=== PATIENT | female | born 1995 | race Caucasian/White ===

== ENCOUNTER → 2017-04-11 | Outpatient (CLI) | payer MEDICAID, OTHER, SELFPAY ==
[~2017-04-11] MED LIST: ADDE10TA OR; CETI10TA OR; EFFE75CA75 PO; HALO1TA PO; IMIT100T PO; KEFL500C17 PO; LAMI25TA OR; LAMI25TA PO; LAMO10TA PO; MAXA10TA17 OR; MICR1TAB10 PO; Naprosyn PO; OMEP20CA3 PO; PREN1TAB11 PO; PROP60TA OR; PROZ20CA OR; Propranolol PO; REGL10TA6 PO; RISP0.5T21 PO; RISP2TAB32 PO; VYVA30CA4 PO; ZONI100C2 PO; ZYRT10CA PO; ZYRT10TA2 PO
[2017-04-11 14:13] LABS: BASO % 0.2 % (0.0-1.0); EOS # 0.1 K/mm3 (0.0-0.50); EOS % 0.9 % (0.0-3.0); LARGE UNSTAINED CELL # 0.1 K/mm3 (0.0-0.4); LARGE UNSTAINED CELL % 0.9 % (0.0-4.0); LYMPH # 1.4 K/mm3 (1.5-6.5); LYMPH % 14.9 % (24.0-44.0); MEAN CORPUSCULAR HEMOGLOBIN 31.1 pg (27.0-33.0); MEAN CORPUSCULAR HGB CONC 34.3 g/dl (32.0-36.5); MEAN CORPUSCULAR VOLUME 90.9 fl (80.0-96.0); MONO # 0.3 K/mm3 (0.0-0.8); MONO % 3.4 % (0.0-5.0); NEUTROPHILS # 7.1 K/mm3 (1.8-7.7); NEUTROPHILS % 79.7 % (36.0-66.0); PLATELET COUNT, AUTOMATED 210 k/mm3 (150-450); RED CELL DISTRIBUTION WIDTH 13.6 % (11.5-14.5); WHITE BLOOD COUNT 8.9 K/mm3 (4.0-10.0)
[2017-04-12 10:56] LABS: HBsAg Prenatal NEGATIVE (NEGATIVE)
== END ==
LOC: M LAB 13:09
PROVIDERS: ATTEND Advanced Practice Midwife
DX: Z34.81 Encounter for supervision of other normal pregnancy, first trimester (principal)

== ENCOUNTER 2017-05-01 19:18 | Emergency (ER) | payer MEDICAID, SELFPAY ==
[~2017-05-01] VITALS: Ht 157.5 cm; Wt 61.8 kg
[~2017-05-01 19:18] MED LIST changes: -PREN1TAB11 PO; -REGL10TA6 PO
[2017-05-01] MEDS ORDERED: PREN1TAB11 PO (19:28)
[2017-05-01] MEDS ORDERED: NS 1,000 ML IV ONE (20:30)
[2017-05-01] MEDS ORDERED: METOCLOPRAMIDE INJ 10MG/2ML VIAL (J2765) IV ONE (20:30)
[2017-05-01 20:52] LABS: BASO % 0.2 % (0.0-1.0); EOS # 0.2 K/mm3 (0.0-0.50); EOS % 1.9 % (0.0-3.0); LARGE UNSTAINED CELL # 0.1 K/mm3 (0.0-0.4); LARGE UNSTAINED CELL % 1.1 % (0.0-4.0); LYMPH # 1.8 K/mm3 (1.5-6.5); LYMPH % 13.8 % (24.0-44.0); MEAN CORPUSCULAR HEMOGLOBIN 31.1 pg (27.0-33.0); MEAN CORPUSCULAR HGB CONC 34.5 g/dl (32.0-36.5); MONO # 0.4 K/mm3 (0.0-0.8); MONO % 3.5 % (0.0-5.0); NEUTROPHILS # 9.7 K/mm3 (1.8-7.7); NEUTROPHILS % 79.5 % (36.0-66.0); PLATELET COUNT, AUTOMATED 239 k/mm3 (150-450); RED CELL DISTRIBUTION WIDTH 13.8 % (11.5-14.5); WHITE BLOOD COUNT 12.2 K/mm3 (4.0-10.0)
[2017-05-01 21:18] LABS: ALBUMIN 3.4 GM/DL (3.2-5.2); ALBUMIN/GLOBULIN RATIO 0.87 (1.00-1.93); ALKALINE PHOSPHATASE 56 U/L (45-117); ALT/SGPT 22 U/L (12-78); AMYLASE 29 U/L (25-115); ANION GAP 11 MEQ/L (8-16); AST/SGOT 15 U/L (15-37); BILIRUBIN,DIRECT 0.2 MG/DL (0.0-0.2); BILIRUBIN,TOTAL 0.5 MG/DL (0.2-1.0); BLOOD UREA NITROGEN 8 MG/DL (7-18); CALCIUM LEVEL 9.1 MG/DL (8.5-10.1); CARBON DIOXIDE LEVEL 23 MEQ/L (21-32); CHLORIDE LEVEL 101 MEQ/L (98-107); CREATININE FOR GFR 0.47 MG/DL (0.55-1.02); GLOMERULAR FILTRATION RATE > 60.0 (>60); GLUCOSE, FASTING 69 MG/DL (70-105); POTASSIUM SERUM 3.3 MEQ/L (3.5-5.1); SODIUM LEVEL 135 MEQ/L (136-145); TOTAL PROTEIN 7.3 GM/DL (6.4-8.2)
--- NOTE | 2017-05-01 21:39 | REPUSA ---
Clinical history: Right upper quadrant pain. Findings: The pancreas is limited in visualization secondary to overlying bowel gas, but appears kesha sly unremarkable. The liver demonstrates uniform echotexture and echogenicity, with no mass lesions. The gallbladder is unremarkable. The common bile duct measures 4 mm and is within normal limits. The right kidney measures 10.6 cm in length and is unremarkable. There is no ascites. Impression: Unremarkable ultrasound examination of the right upper quadrant.
[2017-05-01] MEDS ORDERED: POTASSIUM CHLORIDE 10% LIQ 20 MEQ/15 ML UDC PO ONE (21:45)
[2017-05-01] MEDS ORDERED: cefTRIAXone SOD 2 GM in D5W MINI-BAG PLUS 50 ML IV ONE (21:45)
[2017-05-01] MEDS ORDERED: REGL10TA6 PO (22:53)
[2017-05-01] MEDS ORDERED: KEFL500C17 PO (22:53)
[2017-05-01] MEDS ORDERED: CEPHALEXIN 500 MG CAP PO ONE (23:00)
[2017-05-01 23:01] VITALS: BP 117/73
== END 2017-05-01 23:15 | disposition home or self-care (01) ==
LOC: M ED 19:18
DX: O23.42 Unspecified infection of urinary tract in pregnancy, second trimester (principal); Z3A.19 19 weeks gestation of pregnancy
CPT/HCPCS: 76705; 80048; 80076; 81001; 82150; 83690; 85025; 87088; 87186; 96374; 96375; 99283; J0696; J2765

== ENCOUNTER → 2017-05-11 | Outpatient (CLI) | payer MEDICAID ==
[~2017-05-11] MED LIST changes: +PREN1TAB11 PO; +REGL10TA6 PO
== END ==
LOC: M SMT 11:34
PROVIDERS: ATTEND Advanced Practice Midwife
DX: Z13.79 Encounter for other screening for genetic and chromosomal anomalies (principal)

== ENCOUNTER → 2017-07-31 | Outpatient (CLI) | payer OTHER ==
[2017-07-31 16:01] LABS: BASO % 0.2 % (0.0-1.0); EOS # 0.3 10^3/uL (0.0-0.50); EOS % 2.4 % (0.0-3.0); IMMATURE GRANULOCYTE % 2.1 % (0-0); LYMPH # 1.9 10^3/uL (1.5-6.5); LYMPH % 13.7 % (24.0-44.0); MEAN CORPUSCULAR HEMOGLOBIN 31.1 pg (27.0-33.0); MEAN CORPUSCULAR HGB CONC 34.1 g/dl (32.0-36.5); MEAN CORPUSCULAR VOLUME 91.4 fl (80.0-96.0); MONO # 0.8 10^3/uL (0.0-0.8); MONO % 5.4 % (0.0-5.0); NEUTROPHILS # 10.7 10^3/uL (1.8-7.7); NEUTROPHILS % 76.2 % (36.0-66.0); PLATELET COUNT, AUTOMATED 233 10^3/uL (150-450); RED CELL DISTRIBUTION WIDTH 13.1 % (11.5-14.5); WHITE BLOOD COUNT 14.1 10^3/uL (4.0-10.0)
== END ==
LOC: M LAB 14:05
PROVIDERS: ATTEND Advanced Practice Midwife
DX: Z34.83 Encounter for supervision of other normal pregnancy, third trimester (principal)

== ENCOUNTER → 2017-08-02 | Outpatient (REF) | payer OTHER | LOC: M LAB REF 13:01 | PROVIDERS: ATTEND Advanced Practice Midwife | DX: Z34.83 Encounter for supervision of other normal pregnancy, third trimester (principal) ==

== ENCOUNTER → 2017-09-13 | Outpatient (REF) | payer OTHER | LOC: M LAB REF 13:15 | PROVIDERS: ATTEND Advanced Practice Midwife | DX: Z34.83 Encounter for supervision of other normal pregnancy, third trimester (principal); Z36.85 Encounter for antenatal screening for Streptococcus B ==

== ENCOUNTER 2017-09-22 18:29 | Outpatient (CLI) | payer OTHER ==
[~2017-09-22] VITALS: Ht 160 cm; Wt 72.3 kg
[2017-09-22 18:49] VITALS: BP 119/76
[2017-09-22 19:54] VITALS: BP 125/73
[2017-09-22 20:41] VITALS: BP 125/84
--- NOTE | 2017-09-22 20:48 | IPNPDOC ---
Text Note Date of Service The patient was seen on 09/22/17. NOTE Labor Triage: S: 21yo 38w 4 d arrived on L and D with complaints of contractions since noon. Patient states they are not painful, but yet uncomfortable. States they are not regular. Patient denies any leaking of fluid or bleeding. Fetus is active. States she has had a jug of water and has ate randomly throughout the day. Denies any changes in activity. States she was examined in the office yesterday. O: NAD, mother at bedside, sitting up and talking Normotensive, afebrile Abd: soft, nontender, longitudinal lie, vertex by Cabrera. Ctx: irregular FHR:125, moderate variability, + accels, - decels SVE: unchanged since yesterday in the office. A: 38 4/7 weeks gestation, not in active labor. P: Discharge home, encouraged to rest and hydrate, comfort measures. Encouraged to call back if contractions brass pickler and become regular. Reviewed access to care, LOF, [facility], danger signs, labor signs. Encouraged patient to keep appt next week. Plan discussed with patient, patient agrees in going home. VS,Fishbone, I+O VS, Fishbone, I+O Vital Signs Date Time Temp Pulse Resp B/P (MAP) Pulse Ox O2 Delivery O2 Flow Rate FiO2 09/22/17 18:49 98.4 96 18 119/76 (90) Room Air Deonna Mckinney CNM Sep 22, 2017 20:48
[2017-09-23] MEDS ORDERED: TUMS500C PO (15:11)
== END 2017-09-22 20:51 | disposition home or self-care (01) ==
LOC: M LDO 18:29
PROVIDERS: ATTEND Advanced Practice Midwife
DX: O47.1 False labor at or after 37 completed weeks of gestation (principal); Z3A.38 38 weeks gestation of pregnancy; Z88.8 Allergy status to other drugs, medicaments and biological substances; Z88.1 Allergy status to other antibiotic agents

== ENCOUNTER 2017-09-23 14:44 | Inpatient (IN) | payer OTHER ==
[2017-09-23] VITALS (24 sets, daily range): BP systolic 97–131; BP diastolic 51–84
[~2017-09-23] VITALS: Ht 160 cm; Wt 69.7 kg
[2017-09-23] MEDS ORDERED: TUMS500C PO (15:11)
[2017-09-23] MEDS ORDERED: LR 1,000 ML IV SCH (15:21)
[2017-09-23 15:55] LABS: MEAN CORPUSCULAR HEMOGLOBIN 29.8 pg (27.0-33.0); MEAN CORPUSCULAR HGB CONC 33.9 g/dl (32.0-36.5); MEAN CORPUSCULAR VOLUME 87.8 fl (80.0-96.0); PLATELET COUNT, AUTOMATED 248 10^3/uL (150-450); RED CELL DISTRIBUTION WIDTH 13.4 % (11.5-14.5); WHITE BLOOD COUNT 15.3 10^3/uL (4.0-10.0)
[2017-09-23] MEDS ORDERED: FENTANYL 2MCG/ML ROPIVACAINE 0.2% IN 0.9% NACL 200ML IVBAG As Ordered ONE (17:22)
[2017-09-23] MEDS ORDERED: EPIDURAL/PCA KEYS XX PRN (18:15)
[2017-09-23] MEDS ORDERED: diphenhydrAMINE INJ 50MG/ML VIAL (J1200) IV PRN (18:15)
[2017-09-23] MEDS ORDERED: NALOXONE INJ 0.4 MG/1 ML VIAL (J2310) IV PRN (18:15)
[2017-09-23] MEDS ORDERED: ONDANSETRON 4MG/2ML VIAL (J2405) IV PRN (18:15)
[2017-09-23] MEDS ORDERED: REFRIGERATOR IV KEYS XX PRN (18:15)
[2017-09-23] MEDS ORDERED: LACTATED RINGER'S 1000 ML IV PRN (18:15)
[2017-09-23] MEDS ORDERED: ePHEDrine SULFATE 25 MG/5 ML(5MG/ML) SYRINGE IV PRN (18:15)
[2017-09-23] MEDS ORDERED: FENTANYL/ROPIVACAINE/NACL BAG 200 ML EPIDURAL SCH (18:15)
[2017-09-23] MEDS ORDERED: EPIDURAL COMMENT XX SCH (18:15)
--- NOTE | 2017-09-23 20:06 | HPE ---
DATE OF ADMISSION: 09/23/2017 A 22-year-old G2, P0-0-1-0 female at 38-5/7 weeks gestation by last menstrual period (LMP) consistent with 16-week ultrasound presented with regular contractions every 3-5 minutes or less. As contractions increased in intensity, she has a small amount of bleeding. Denies loss of fluid. COURSE: Patient initiated care at 15 weeks gestation 04/11/2017. Her blood pressure is 112/66, weight 141 pounds. She had an appointment during at the center for a history of osteogenesis imperfecta. Remainder of course was unremarkable. MEDICAL HISTORY: 1. Osteogenesis imperfecta. 2. Depression and anxiety. SURGICAL HISTORY: None. ALLERGIES: TYLENOL and ASPIRIN. SOCIAL HISTORY: Father of the baby is involved. The patient denies cigarettes, alcohol, or drug use. FAMILY HISTORY: Noncontributory. PHYSICAL EXAMINATION: Blood pressure 124/74, pulse 84. GENERAL: She appears uncomfortable. HEAD AND NECK: Normal. LUNGS: Clear. HEART: Regular rate and rhythm. ABDOMEN: Nontender. Gravid. heart tones category 1. Contractions every 3-6 minutes. Cervix 3 cm, 1005 effaces, -1 station, vertex. EXTREMITIES: Nontender. LABORATORY DATA: Blood type O positive, Rubella immune, RPR nonreactive, hepatitis B and C negative. Diabetes screening 103. GBS negative on 09/13/2017. ASSESSMENT: A 22-year-old G2, P-0-0-0 female at 38-5/7 weeks gestation presents in labor. Patient was admitted on 09/23/2017.
[2017-09-23] MEDS ORDERED: OXYTOCIN DRIP 30 UNITS in APPROPRIATE DILUENT 1 EA IV SCH (22:45)
[2017-09-24] VITALS (14 sets, daily range): BP systolic 87–131; BP diastolic 46–77
[2017-09-24] MEDS ORDERED: OXYTOCIN DRIP 30 UNITS in APPROPRIATE DILUENT 1 EA IV ONE (02:30)
[2017-09-24] MEDS ORDERED: DOCUSATE SODIUM 100 MG CAP PO PRN (02:30)
[2017-09-24] MEDS ORDERED: METHYLERGONOVINE MALEATE 0.2 MG TAB PO PRN (02:30)
[2017-09-24] MEDS ORDERED: RHOGAM 300 MCG (1500 IU) INJ (J2790) IM SCH (02:30)
[2017-09-24] MEDS ORDERED: ONDANSETRON 4MG/2ML VIAL (J2405) IV PRN (02:30)
[2017-09-24] MEDS ORDERED: DIBUCAINE 1% OINTMENT 30GM TOP PRN (02:30)
[2017-09-24] MEDS ORDERED: MEASLES,MUMPS,RUBELLA VACCINE INJ (MMR-II) (90707) SC SCH (02:30)
[2017-09-24] MEDS: IBUPROFEN 800 MG TAB PO PRN ×2 (07:37→18:05)
[2017-09-24] MEDS: PRENATAL VITAMINS CHEWABLE TABLET PO SCH (07:37)
--- NOTE | 2017-09-24 21:22 | DN ---
DATE: 09/24/2017 PREDELIVERY DIAGNOSIS: Term in labor. POSTDELIVERY DIAGNOSIS: Delivered. PROCEDURE: Spontaneous vaginal delivery. FILM PROCESSING SUPERVISOR: Dr. Rodrigo Carter. ANESTHESIA: Epidural. ESTIMATED BLOOD LOSS: 300 mL. FINDINGS: 8 pound 12 ounce male with scores 8 and 9. DELIVERY SUMMARY: After a 15-minute second stage, the patient spontaneously delivered an 8 pound 12 ounce male with scores 8 and 9 under epidural anesthesia. There was no nuchal cord. The shoulders delivered with ease. The infant cried spontaneously and was handed to the mother. The cord was doubly clamped and cut. The placenta delivered spontaneously and appeared to be intact. The patient received intravenous (IV) Pitocin immediately after delivery of the placenta. Bilateral first-degree labial lacerations and a first-degree perineal laceration were repaired 3-0 chromic in the usual fashion. Sponge and needle counts were correct.
[2017-09-25 05:30] VITALS: BP 99/57
[2017-09-25] MEDS: PRENATAL VITAMINS CHEWABLE TABLET PO SCH (08:15)
[2017-09-25] MEDS: IBUPROFEN 800 MG TAB PO PRN ×2 (08:16→20:11)
[2017-09-25 18:00] VITALS: BP 110/62
[2017-09-26 06:18] VITALS: BP 96/52
[2017-09-26] MEDS ORDERED: IBUP-1114 PO (07:46)
[2017-09-26] MEDS: PRENATAL VITAMINS CHEWABLE TABLET PO SCH (08:10)
== END 2017-09-26 10:30 | disposition home or self-care (01) | DRG 560 ==
LOC: M LDO 14:44 → M LDI 15:05 → M OBS 09-24 04:36
PROVIDERS: ADMIT Specialist; ATTEND Specialist
PROC: 10E0XZZ Delivery of Products of Conception, External Approach (ICD-10-PCS; principal; 2017-09-24)
PROC: 0HQ9XZZ Repair Perineum Skin, External Approach (ICD-10-PCS; 2017-09-24)
DX: O70.0 First degree perineal laceration during delivery (principal); Z88.6 Allergy status to analgesic agent; Z37.0 Single live birth; Z3A.38 38 weeks gestation of pregnancy

== ENCOUNTER → 2017-12-01 | Outpatient (CLI) | payer OTHER ==
[2017-12-01 09:23] LABS: BASO % 0.4 % (0.0-1.0); EOS # 0.3 10^3/uL (0.0-0.50); EOS % 3.1 % (0.0-3.0); HEMATOCRIT 38.5 % (36.0-47.0); HEMOGLOBIN 12.5 g/dl (12.0-16.0); IMMATURE GRANULOCYTE % 0.1 % (0-3.0); LYMPH # 1.7 10^3/uL (1.5-6.5); LYMPH % 20.6 % (24.0-44.0); MEAN CORPUSCULAR HEMOGLOBIN 28.3 pg (27.0-33.0); MEAN CORPUSCULAR HGB CONC 32.5 g/dl (32.0-36.5); MEAN CORPUSCULAR VOLUME 87.1 fl (80.0-96.0); MONO # 0.5 10^3/uL (0.0-0.8); MONO % 5.6 % (0.0-5.0); NEUTROPHILS # 5.9 10^3/uL (1.8-7.7); NEUTROPHILS % 70.2 % (36.0-66.0); PLATELET COUNT, AUTOMATED 231 10^3/uL (150-450); RED BLOOD COUNT 4.42 10^6/uL (4.00-5.40); RED CELL DISTRIBUTION WIDTH 13.1 % (11.5-14.5); WHITE BLOOD COUNT 8.4 10^3/uL (4.0-10.0)
[2017-12-01 09:53] LABS: ALBUMIN/GLOBULIN RATIO 1.21 (1.00-1.93); ALKALINE PHOSPHATASE 74 U/L (45-117); ALT/SGPT 19 U/L (12-78); ANION GAP 7 MEQ/L (8-16); AST/SGOT 9 U/L (7-37); BILIRUBIN,TOTAL 0.3 MG/DL (0.2-1.0); BLOOD UREA NITROGEN 11 MG/DL (7-18); CALCIUM LEVEL 8.8 MG/DL (8.5-10.1); CARBON DIOXIDE LEVEL 27 MEQ/L (21-32); CHLORIDE LEVEL 105 MEQ/L (98-107); CREATININE FOR GFR 0.58 MG/DL (0.55-1.30); GLOMERULAR FILTRATION RATE > 60.0 (>60); GLUCOSE, FASTING 78 MG/DL (70-100); SODIUM LEVEL 139 MEQ/L (136-145); THYROID STIMULATING HORMONE 0.593 uIU/ML (0.358-3.740); TOTAL PROTEIN 7.3 GM/DL (6.4-8.2)
[2017-12-01 10:49] LABS: TOTAL 25(OH) VITAMIN D 19.7 NG/ML (30.0-100.0)
== END ==
LOC: M LAB 08:36
DX: Z00.00 Encounter for general adult medical examination without abnormal findings (principal); F32.9 Major depressive disorder, single episode, unspecified; R56.9 Unspecified convulsions; Q78.0 Osteogenesis imperfecta
CPT/HCPCS: 84443

== ENCOUNTER 2018-04-11 07:50 | Emergency (ER) | payer OTHER ==
[2018-04-11] MEDS: FAMOTIDINE 20 MG TAB PO (09:19)
[2018-04-11] MEDS: GI COCKTAIL 50ML BTL(HYOSCYAMINE/MAALOX/LIDOCAINE VISCOUS)(1:3:1) PO (09:20)
[2018-04-11] MEDS: ONDANSETRON 4 MG ORAL DISINTEGRATING TAB (Q0162 PER 1MG) PO (09:20)
== END 2018-04-11 10:01 | disposition home or self-care (01) ==
LOC: M ED 07:50
DX: K29.00 Acute gastritis without bleeding (principal); K21.9 Gastro-esophageal reflux disease without esophagitis; R51 Headache; F32.9 Major depressive disorder, single episode, unspecified; Q78.0 Osteogenesis imperfecta; Z79.899 Other long term (current) drug therapy; Z88.6 Allergy status to analgesic agent; Z88.1 Allergy status to other antibiotic agents
CPT/HCPCS: Q0162

== ENCOUNTER → 2018-04-11 | Outpatient (REF) | payer OTHER ==
[2018-04-11 15:39] LABS: BASO % 0.5 % (0.0-1.0); EOS # 0.3 10^3/uL (0.0-0.50); EOS % 4.4 % (0.0-3.0); HEMATOCRIT 38.8 % (36.0-47.0); HEMOGLOBIN 12.6 g/dl (12.0-15.5); IMMATURE GRANULOCYTE % 0.2 % (0-3.0); LYMPH % 33.8 % (24.0-44.0); MEAN CORPUSCULAR HEMOGLOBIN 29.6 pg (27.0-33.0); MEAN CORPUSCULAR HGB CONC 32.5 g/dl (32.0-36.5); MEAN CORPUSCULAR VOLUME 91.3 fl (80.0-96.0); MONO # 0.4 10^3/uL (0.0-0.8); MONO % 6.3 % (0.0-5.0); NEUTROPHILS # 3.3 10^3/uL (1.8-7.7); NEUTROPHILS % 54.8 % (36.0-66.0); PLATELET COUNT, AUTOMATED 219 10^3/uL (150-450); RED BLOOD COUNT 4.25 10^6/uL (4.00-5.40); RED CELL DISTRIBUTION WIDTH 12.9 % (11.5-14.5); WHITE BLOOD COUNT 5.9 10^3/uL (4.0-10.0)
[2018-04-11 15:50] LABS: ALBUMIN 3.9 GM/DL (3.2-5.2); ALBUMIN/GLOBULIN RATIO 1.15 (1.00-1.93); ALKALINE PHOSPHATASE 79 U/L (45-117); ALT/SGPT 17 U/L (12-78); AMYLASE 26 U/L (25-115); ANION GAP 8 MEQ/L (8-16); AST/SGOT 5 U/L (7-37); BILIRUBIN,TOTAL 0.3 MG/DL (0.2-1.0); BLOOD UREA NITROGEN 12 MG/DL (7-18); CALCIUM LEVEL 8.4 MG/DL (8.5-10.1); CARBON DIOXIDE LEVEL 27 MEQ/L (21-32); CHLORIDE LEVEL 107 MEQ/L (98-107); CREATININE FOR GFR 0.66 MG/DL (0.55-1.30); GLOMERULAR FILTRATION RATE > 60.0 (>60); GLUCOSE, FASTING 84 MG/DL (70-100); LIPASE 62 U/L (73-393); POTASSIUM SERUM 4.4 MEQ/L (3.5-5.1); SODIUM LEVEL 142 MEQ/L (136-145); TOTAL PROTEIN 7.3 GM/DL (6.4-8.2)
== END ==
LOC: M SFHCPLAZ 12:15
DX: R10.12 Left upper quadrant pain (principal)
CPT/HCPCS: 82150

== ENCOUNTER → 2018-04-11 | Outpatient (CLI) | payer OTHER | LOC: M RAD 16:47 | DX: R10.812 Left upper quadrant abdominal tenderness (principal) | CPT/HCPCS: 76705 ==

== ENCOUNTER → 2018-04-25 | Outpatient (REF) | payer OTHER ==
[2018-04-25 18:50] LABS: CONTROL LINE MONO RF C INT CTR LINE PRESENT; MONO REFLEX EBV COMP NEGATIVE (NEGATIVE)
[2018-04-28 00:14] LABS: EBV VIRAL CAPSID AG IgM <36.0 U/mL (0.0-35.9)
[2018-04-28 00:14] LABS: EBV AB TO NUCLEAR ANTIGEN >600.0 U/mL (0.0-17.9); EBV VIRAL CAPSID AG IgG 26.8 U/mL (0.0-17.9)
== END ==
LOC: M SFHCPLAZ 15:12
DX: R16.1 Splenomegaly, not elsewhere classified (principal)
CPT/HCPCS: 86665

== ENCOUNTER → 2018-05-08 | Outpatient (CLI) | payer OTHER | LOC: M RAD 14:22 | DX: N13.30 Unspecified hydronephrosis (principal) | CPT/HCPCS: 74176 ==

== ENCOUNTER → 2018-05-13 | Outpatient (REF) | payer OTHER ==
[2018-05-16 00:14] LABS: H PYLORI STOOL ANTIGEN Negative (Negative)
== END ==
LOC: M LAB REF 19:44
DX: R10.12 Left upper quadrant pain (principal)

== ENCOUNTER → 2018-05-24 | Outpatient (REF) | payer OTHER ==
[2018-05-24 14:50] LABS: THYROID STIMULATING HORMONE 0.824 uIU/ML (0.358-3.740)
== END ==
LOC: M SFHCPLAZ 10:42
DX: R63.4 Abnormal weight loss (principal)

== ENCOUNTER → 2018-12-17 | Outpatient (REF) | payer OTHER ==
[~2018-12-17] MED LIST changes: +CALC1TAB42 PO; +EFFE75CA2 PO; -EFFE75CA75 PO; +FENU610C PO; +IBUP-1114 PO; -MICR1TAB10 PO; +MICR1TAB18 PO; +PROT1TAB2 PO; +TUMS500C PO; +ZOFR4TAB14 PO; +ZYRT10CA5 PO; -ZYRT10TA2 PO
[2018-12-17 11:48] LABS: IONIZED CALCIUM 4.8 MG/DL (4.5-5.3)
[2018-12-17 11:57] LABS: APPEARANCE, URINE CLEAR (CLEAR); BACTERIA, URINE AUTO 1+ (NEGATIVE); BILIRUBIN, URINE AUTO NEGATIVE (NEGATIVE); BLOOD, URINE BLOOD 1+ (NEGATIVE); COLOR, URINE STRAW (YELLOW); GLUCOSE, URINE (UA) AUTO NEGATIVE (NEGATIVE); KETONE, URINE AUTO NEGATIVE (NEGATIVE); LEUKOCYTE ESTERASE, URINE AUTO NEGATIVE (NEGATIVE); NITRITE, URINE AUTO NEGATIVE (NEGATIVE); PROTEIN, URINE AUTO NEGATIVE (NEGATIVE); RBC, URINE AUTO 2 /HPF (0-3); SPECIFIC GRAVITY URINE AUTO 1.006 (1.002-1.035); SQUAMOUS EPITHELIAL CELL UR AU 1 /HPF (0-6); UROBILINOGEN, URINE AUTO 0.2 mg/dL (0.0-2.0); WBC, URINE AUTO 2 /HPF (0-3)
[2018-12-17 12:29] LABS: TOTAL 25(OH) VITAMIN D 22.9 NG/ML (30.0-100.0)
== END ==
LOC: M SFHCPLAZ 09:40
PROVIDERS: ATTEND Family Medicine
DX: Q78.0 Osteogenesis imperfecta (principal); E55.9 Vitamin D deficiency, unspecified; R10.13 Epigastric pain; R35.0 Frequency of micturition

== ENCOUNTER 2019-02-25 12:54 | Day surgery (SDC) | payer OTHER ==
[~2019-02-25] VITALS: Ht 160 cm; Wt 68.0 kg
[~2019-02-25 12:54] MED LIST changes: +LAMO100T80 PO; -LAMO10TA PO; +MIRE1IUD IU
[2019-02-25] MEDS ORDERED: NS 1,000 ML IV SCH (13:31)
[2019-02-25] MEDS ORDERED: PROPOFOL 200 MG/20 ML VIAL As Ordered ONE (14:03)
[2019-02-25] MEDS ORDERED: LIDOCAINE 2% INJ 100 MG/5 ML SDV (FOR ANES.) As Ordered ONE (14:03)
[2019-02-25 14:40] VITALS: BP 113/60
--- NOTE | 2019-02-25 14:45 | ROOR ---
Patient Name: Lani Warner Procedure Date: 02/25/2019 2:01 PM Date of : 1995 Age: 23 Room: [facility] Gender: Female Note Status: Finalized Procedure: Upper GI endoscopy Indications: Epigastric abdominal pain, Heartburn Providers: Juan Jose Oh MD Referring MD: Franco CONTRERAS MD Requesting Provider: Medicines: Monitored Anesthesia Care Complications: No immediate complications. Procedure: Pre-Anesthesia Assessment: - Prior to the procedure, a History and Physical was performed, and patient medications and allergies were reviewed. The patient is competent. The risks and benefits of the procedure and the sedation options and risks were discussed with the patient. All questions were answered and informed consent was obtained. Patient identification and proposed procedure were verified by the physician, the nurse and the anesthesiologist in the procedure room. Mental Status Examination: alert and oriented. Airway Examination: normal oropharyngeal airway and neck mobility. Respiratory Examination: clear to auscultation. CV Examination: normal. Prophylactic Antibiotics: The patient does not require prophylactic antibiotics. Prior Anticoagulants: The patient has taken no previous anticoagulant or antiplatelet agents. ASA Grade Assessment: I - A normal, healthy patient. After reviewing the risks and benefits, the patient was deemed in satisfactory condition to undergo the procedure. The anesthesia plan was to use monitored anesthesia care (MAC). Immediately prior to administration of medications, the patient was re-assessed for adequacy to receive sedatives. The heart rate, respiratory rate, oxygen saturations, blood pressure, adequacy of pulmonary ventilation, and response to care were monitored throughout the procedure. The physical status of the patient was re-assessed after the procedure. The Endoscope was introduced through the mouth, and advanced to the second part of duodenum. The upper GI endoscopy was accomplished without difficulty. The patient tolerated the procedure well. Findings: The examined esophagus was normal. The Z-line was regular and was found at the gastroesophageal junction. Diffuse mild inflammation characterized by erythema and granularity was found in the gastric body and in the gastric antrum. Biopsies were taken with a cold forceps for Helicobacter pylori testing. Verification of patient identification for the specimen was done by the physician and nurse using the patient's name, date and medical record number. Estimated blood loss was minimal. The duodenal bulb and second portion of the duodenum were normal. Biopsies for histology were taken with a cold forceps for evaluation of celiac disease. Impression: - Normal esophagus. - Z-line regular, at the gastroesophageal junction. - Gastritis. Biopsied. - Normal duodenal bulb and second portion of the duodenum. Biopsied. Recommendation: - Patient has a contact number available for emergencies. The signs and symptoms of potential delayed complications were discussed with the patient. Return to normal activities tomorrow. Written discharge instructions were provided to the patient. - Resume previous diet. - Continue present medications. - Follow an antireflux regimen. - Await pathology results. - Telephone GI clinic for pathology results in 2 weeks. - Return to primary care physician. Juan Jose Oh MD Juan Jose Oh MD 02/25/2019 2:44:56 PM Electronically signed by Juan Jose Oh MD Number of Addenda: 0 Note Initiated On: 02/25/2019 2:01 PM Estimated Blood Loss: Estimated blood loss was minimal.
== END 2019-02-25 14:53 | disposition home or self-care (01) ==
LOC: M OPP 12:54
PROVIDERS: ATTEND Internal Medicine Gastroenterology
DX: K29.70 Gastritis, unspecified, without bleeding (principal); R10.13 Epigastric pain; R12 Heartburn

== ENCOUNTER → 2019-04-10 | Outpatient (CLI) | payer OTHER ==
--- NOTE | 2019-04-10 12:50 | REP ---
Left hand third and fourth digits four views: Mineralization and joint spaces are normal. There is no fracture or dislocation. There are no calcifications or foreign bodies. Impression: Negative left hand third and fourth digits. Electronically Signed by Kevin Fernandze MD 04/10/2019 12:41 P
== END ==
LOC: M RAD 11:23
PROVIDERS: ATTEND Physician Assistant
DX: S69.92XA Unspecified injury of left wrist, hand and finger(s), initial encounter (principal); X58.XXXA Exposure to other specified factors, initial encounter; Y92.89 Other specified places as the place of occurrence of the external cause

== ENCOUNTER → 2019-06-20 | Outpatient (CLI) | payer OTHER ==
[~2019-06-20] MED LIST changes: -OMEP20CA3 PO; +OMEP20CA4 PO
[2019-06-20 14:11] LABS: FREE T4 1.01 NG/DL (0.76-1.46); THYROID STIMULATING HORMONE 1.12 uIU/ML (0.358-3.740)
== END ==
LOC: M SMT 09:49
PROVIDERS: ATTEND Advanced Practice Midwife
DX: R63.5 Abnormal weight gain (principal)

== ENCOUNTER → 2019-06-20 | Outpatient (REF) | payer OTHER ==
[2019-06-20 14:45] LABS: CHLAMYDIA DNA AMPLIFICATION NEGATIVE (NEGATIVE); GC DNA AMPLIFICATION NEGATIVE (NEGATIVE)
== END ==
LOC: M LAB REF 12:50
PROVIDERS: ATTEND Advanced Practice Midwife
DX: Z11.3 Encounter for screening for infections with a predominantly sexual mode of transmission (principal)

== ENCOUNTER → 2019-06-20 | Outpatient (REF) | payer OTHER ==
[~2019-06-20] MED LIST changes: +OMEP1CAP73 PO; -OMEP20CA4 PO; +ZONI100C17 PO; -ZONI100C2 PO
== END ==
LOC: M LAB REF 12:59
PROVIDERS: ATTEND Advanced Practice Midwife
DX: Z12.4 Encounter for screening for malignant neoplasm of cervix (principal)

== ENCOUNTER → 2019-06-25 | Outpatient (CLI) | payer OTHER ==
[~2019-06-25] MED LIST changes: -OMEP1CAP73 PO; +OMEP20CA4 PO; -ZONI100C17 PO; +ZONI100C2 PO
--- NOTE | 2019-06-25 17:58 | REP ---
PELVIC ULTRASOUND: Real-time sonographic evaluation of the pelvis was performed utilizing transabdominal and endovaginal technique. The bladder measures 5.8 x 3.1 x 8.4 cm. The uterus measures 8.5 x 4.1 x 4.2 cm. Endometrial thickness is 4 mm. IUD is seen in the fundal portion of the endometrial cavity. There is trace endometrial fluid present. Right ovary measures 2.5 x 1.2 x 2.0 cm and left ovary 3.4 x 2.4 x 2.6 cm. Dominant follicle in the left ovary measures 2.3 x 2.1 x 1.8 cm. There is no torsion bilaterally with duplex Doppler evaluation. A tiny amount of fluid is seen in the cervix with surrounding hyperechoic tissue. IMPRESSION: IUD in the fundal endometrial cavity. Trace fluid seen throughout the endometrial and cervical cavities. No mass or free fluid. Endometrial thickness 4 mm. Electronically Signed by Kevin Reynolds MD 06/26/2019 04:58 P
== END ==
LOC: M RAD 14:27
PROVIDERS: ATTEND Advanced Practice Midwife
DX: R10.2 Pelvic and perineal pain (principal)

== ENCOUNTER → 2021-08-12 | Outpatient (CLI) | payer OTHER ==
[~2021-08-12] MED LIST changes: +OMEP1CAP73 PO; -OMEP20CA4 PO; +ZONI100C17 PO; -ZONI100C2 PO
== END ==
LOC: M EKG 10:49
PROVIDERS: ATTEND Nurse Practitioner Psychiatric/Mental Health
DX: F90.0 Attention-deficit hyperactivity disorder, predominantly inattentive type (principal)

== ENCOUNTER → 2022-03-07 | Outpatient (CLI) | payer OTHER ==
[~2022-03-07] MED LIST changes: -HALO1TA PO; +HALO1TAB PO; -MICR1TAB18 PO; +NORE1TAB94 PO; -ZONI100C17 PO; +ZONI100C67 PO
[2022-03-07 15:44] LABS: BASO % 0.5 % (0.0-1.0); EOS # 0.2 10^3/uL (0.0-0.5); EOS % 2.7 % (0.0-3.0); HEMATOCRIT 41.8 % (36.0-47.0); HEMOGLOBIN 14.1 g/dl (12.0-15.5); LYMPH # 2.2 10^3/uL (1.5-5.0); LYMPH % 28.1 % (24.0-44.0); MEAN CORPUSCULAR HEMOGLOBIN 31.4 pg (27.0-33.0); MEAN CORPUSCULAR HGB CONC 33.7 g/dl (32.0-36.5); MEAN CORPUSCULAR VOLUME 93.1 fl (80.0-96.0); MONO # 0.5 10^3/uL (0.0-0.8); MONO % 6.4 % (2.0-8.0); NEUTROPHILS # 4.9 10^3/uL (1.5-8.5); NEUTROPHILS % 61.9 % (36.0-66.0); PLATELET COUNT, AUTOMATED 254 10^3/uL (150-450); RED BLOOD COUNT 4.49 10^6/uL (4.00-5.40); WHITE BLOOD COUNT 7.8 10^3/uL (4.0-10.0)
[2022-03-07 16:17] LABS: ALBUMIN 3.9 GM/DL (3.2-5.2); ALT/SGPT 34 U/L (12-78); BILIRUBIN,TOTAL 0.3 MG/DL (0.2-1.0); BLOOD UREA NITROGEN 5 MG/DL (7-18); CALCIUM LEVEL 9.6 MG/DL (8.5-10.1); CARBON DIOXIDE LEVEL 25 MEQ/L (21-32); CHLORIDE LEVEL 107 MEQ/L (98-107); CHOLESTEROL LEVEL 175 MG/DL (<200); CHOLESTEROL RISK RATIO 4.605 (<5); CREATININE FOR GFR 0.77 MG/DL (0.55-1.30); GLOMERULAR FILTRATION RATE > 60.0 (>60); GLUCOSE, FASTING 85 MG/DL (70-100); HDL CHOLESTEROL 38 MG/DL (>40); LDL CHOLESTEROL 121 MG/DL (<100); NON-HDL-C 137 MG/DL; POTASSIUM SERUM 4.6 MEQ/L (3.5-5.1); SODIUM LEVEL 140 MEQ/L (136-145); TOTAL PROTEIN 7.5 GM/DL (6.4-8.2); TRIGLYCERIDES LEVEL 82 MG/DL (<150)
[2022-03-07 17:38] LABS: HEMOGLOBIN A1c 5.1 %
== END ==
LOC: M PLALAB 13:36
PROVIDERS: ATTEND Physician Assistant
DX: Q78.0 Osteogenesis imperfecta (principal); Z68.38 Body mass index [BMI] 38.0-38.9, adult; E55.9 Vitamin D deficiency, unspecified

== ENCOUNTER → 2022-08-14 | Outpatient (CLI) | payer OTHER ==
[~2022-08-14] MED LIST changes: +ADDE15CA3 PO; +AMPH1CAP9 PO; +FLUV25TA13 PO; +RISP-8 PO; +[UNRECOGNIZED DRUG - OTHER] PO; +mirena; +red clover PO
== END ==
LOC: M LABSMTC 10:02
PROVIDERS: ATTEND Anesthesiology
DX: Z01.812 Encounter for preprocedural laboratory examination (principal); Z20.822 Contact with and (suspected) exposure to COVID-19

== ENCOUNTER 2022-08-19 09:39 | Day surgery (SDC) | payer OTHER ==
[~2022-08-19] VITALS: Ht 162.6 cm; Wt 96.2 kg
[2022-08-19 10:06] LABS: HEMATOCRIT 38.6 % (36.0-47.0); HEMOGLOBIN 12.9 g/dl (12.0-15.5); MEAN CORPUSCULAR HEMOGLOBIN 30.2 pg (27.0-33.0); MEAN CORPUSCULAR HGB CONC 33.4 g/dl (32.0-36.5); MEAN CORPUSCULAR VOLUME 90.4 fl (80.0-96.0); PLATELET COUNT, AUTOMATED 239 10^3/uL (150-450); RED BLOOD COUNT 4.27 10^6/uL (4.00-5.40); WHITE BLOOD COUNT 5.7 10^3/uL (4.0-10.0)
[2022-08-19] MEDS ORDERED: LR 1,000 ML IV SCH ×3 (11:15→14:50)
[2022-08-19 11:38] LABS: HCG, SERUM QUALITATIVE NEGATIVE (NEGATIVE)
[2022-08-19] MEDS ORDERED: BUPIVACAINE HCL 0.25% 10ML VIAL As Ordered ONE (11:56)
[2022-08-19] MEDS ORDERED: LIDOCAINE 2% 100MG/5ML SDV (FOR ANES.) As Ordered ONE (12:03)
[2022-08-19] MEDS ORDERED: propofoL 200 MG/20 ML VIAL As Ordered ONE (12:03)
[2022-08-19] MEDS ORDERED: fentaNYL 250 MCG/5 ML INJECTION As Ordered ONE (12:03)
[2022-08-19] MEDS ORDERED: ROCURONIUM BROMIDE 50 MG/5 ML VIAL As Ordered ONE (12:03)
[2022-08-19] MEDS ORDERED: MIDAZOLAM INJ 2MG/2ML VIAL (J2250 PER 1MG) As Ordered ONE (12:03)
[2022-08-19] MEDS ORDERED: METOCLOPRAMIDE INJ 10MG/2ML VIAL (J2765 PER 1) As Ordered ONE (12:35)
[2022-08-19] MEDS ORDERED: ONDANSETRON 4MG 2ML VIAL As Ordered ONE (12:35)
[2022-08-19] MEDS ORDERED: SUGAMMADEX SODIUM 500 MG/5 ML VIAL (BRIDION) As Ordered ONE (12:53)
[2022-08-19] MEDS ORDERED: oxyCODONE 5MG TAB PO PRN ×2 (13:10→14:50)
[2022-08-19] MEDS ORDERED: HYDROMORPHONE HCL 0.5 MG/ 0.5 ML SYRINGE (J1170 PER 1) IV PRN (13:10)
[2022-08-19] MEDS ORDERED: fentaNYL 100 MCG/2 ML INJECTION IV PRN (13:10)
[2022-08-19] MEDS ORDERED: ONDANSETRON 4MG 2ML VIAL IV PRN (13:10)
[2022-08-19] MEDS ORDERED: OXYC-517 PO (14:11)
[2022-08-19 14:34] VITALS: BP 120/51
== END 2022-08-19 14:52 | disposition home or self-care (01) ==
LOC: M SDC 09:39
PROVIDERS: ATTEND Specialist
DX: Z30.2 Encounter for sterilization (principal); K21.9 Gastro-esophageal reflux disease without esophagitis; F41.9 Anxiety disorder, unspecified; F90.9 Attention-deficit hyperactivity disorder, unspecified type; Q78.0 Osteogenesis imperfecta; Z79.899 Other long term (current) drug therapy; Z91.018 Allergy to other foods; Z88.8 Allergy status to other drugs, medicaments and biological substances; Z88.1 Allergy status to other antibiotic agents; Z87.891 Personal history of nicotine dependence
CPT/HCPCS: 36415; 58661; 84703; 85027; 88302; J2250; J2405; J2765; J3010

== ENCOUNTER → 2022-09-12 | Outpatient (CLI) | payer OTHER ==
[~2022-09-12] MED LIST changes: +OXYC-517 PO
[2022-09-12 16:28] LABS: FREE T4 1.11 NG/DL (0.89-1.76); THYROID STIMULATING HORMONE 0.75 uIU/ML (0.55-4.78)
[2022-09-12 17:18] LABS: PROLACTIN 52.08 NG/ML
== END ==
LOC: M PLALAB 11:46
PROVIDERS: ATTEND Specialist
DX: N64.3 Galactorrhea not associated with childbirth (principal)

== ENCOUNTER → 2022-10-03 | Outpatient (CLI) | payer OTHER ==
[2022-10-03 14:37] LABS: HEMOGLOBIN A1c 4.8 % (4.0-6.0)
[2022-10-03 14:41] LABS: BASO % 0.6 % (0.0-1.0); EOS # 0.2 10^3/uL (0.0-0.5); EOS % 2.6 % (0.0-3.0); HEMATOCRIT 39.9 % (36.0-47.0); LYMPH # 1.9 10^3/uL (1.5-5.0); LYMPH % 26.1 % (24.0-44.0); MEAN CORPUSCULAR HEMOGLOBIN 30.2 pg (27.0-33.0); MEAN CORPUSCULAR HGB CONC 32.6 g/dl (32.0-36.5); MEAN CORPUSCULAR VOLUME 92.6 fl (80.0-96.0); MONO # 0.4 10^3/uL (0.0-0.8); MONO % 5.6 % (2.0-8.0); NEUTROPHILS # 4.7 10^3/uL (1.5-8.5); NEUTROPHILS % 64.8 % (36.0-66.0); PLATELET COUNT, AUTOMATED 248 10^3/uL (150-450); RED BLOOD COUNT 4.31 10^6/uL (4.00-5.40); WHITE BLOOD COUNT 7.3 10^3/uL (4.0-10.0)
[2022-10-03 15:00] LABS: ALBUMIN 3.8 G/DL (3.2-5.2); ALKALINE PHOSPHATASE 62 U/L (46-116); ALT/SGPT 36 U/L (7.0-40); AST/SGOT 19 U/L (<34); BILIRUBIN,TOTAL 0.4 MG/DL (0.3-1.2); BLOOD UREA NITROGEN 9 MG/DL (9-23); CALCIUM LEVEL 8.9 MG/DL (8.5-10.1); CARBON DIOXIDE LEVEL 25 MMOL/L (20-31); CHLORIDE LEVEL 106 MMOL/L (98-107); CHOLESTEROL LEVEL 166 MG/DL (<200); CHOLESTEROL RISK RATIO 4.35 (<5); CREATININE FOR GFR 0.84 MG/DL (0.55-1.30); GLOMERULAR FILTRATION RATE > 60.0 (>60); GLUCOSE, FASTING 87 MG/DL (60-100); HDL CHOLESTEROL 38.1 MG/DL (>40); LDL CHOLESTEROL 115.5 MG/DL (<100); NON-HDL-C 128 MG/DL; POTASSIUM SERUM 4.8 MMOL/L (3.5-5.1); SODIUM LEVEL 138 MMOL/L (136-145); TOTAL PROTEIN 6.9 G/DL (5.7-8.2); TRIGLYCERIDES LEVEL 62 MG/DL (<150)
[2022-10-03 15:02] LABS: THYROID STIMULATING HORMONE 0.898 uIU/ML (0.55-4.78)
== END ==
LOC: M PLALAB 09:49
PROVIDERS: ATTEND Nurse Practitioner Psychiatric/Mental Health
DX: F90.0 Attention-deficit hyperactivity disorder, predominantly inattentive type (principal); F43.12 Post-traumatic stress disorder, chronic

== ENCOUNTER → 2023-06-21 | Outpatient (REF) | payer OTHER | LOC: M LAB REF 12:27 | PROVIDERS: ATTEND Physician Assistant | DX: J02.9 Acute pharyngitis, unspecified (principal) ==

== ENCOUNTER → 2023-10-06 | Outpatient (REF) | payer OTHER | LOC: M SFHCWAGY 17:17 | PROVIDERS: ATTEND Nurse Practitioner Family | DX: Z12.4 Encounter for screening for malignant neoplasm of cervix (principal) ==